=== PATIENT | male | born 1995 | race Caucasian/White ===

== ENCOUNTER 2016-09-12 20:58 | Emergency (ER) | payer OTHER ==
[~2016-09-12] VITALS: Ht 177.8 cm; Wt 89.6 kg
[~2016-09-12 20:58] MED LIST: DXY100 PO
[2016-09-12 21:02] VITALS: TEMP 36.9; Ht 177.8 cm; Wt 89.6 kg
[2016-09-12] MEDS ORDERED: PROPARACAINE HCL 0.5% OP SOLN 15 ML BTL OP STA (21:14)
[2016-09-12] MEDS ORDERED: LISD50CA4 PO (21:41)
[2016-09-12] MEDS ORDERED: TIMOLOL MALEATE 0.25% OP SOLN 5 ML BTL OP STA (23:24)
[2016-09-12] MEDS ORDERED: TRAVOPROST Z 0.004% OPH SOLN 2.5 ML BTL OP SCH (23:30)
--- NOTE | 2016-09-12 23:59 | EMERGENCY ROOM VISIT NOTE ---
History First contact with patient: 21:06 Chief Complaint: EYE ASSESSMENT Stated Complaint: FOREIGN OBJECT IN EYE History of Present Illness The patient is a 21 year old male who presents to the Emergency Room via private vehicle with complaints of "foreign object in eye". The patient states that he had PRK surgery that was performed by Danii Rojo,. The patient states that shortly prior to arrival here today he was at home and felt like something was in his left lower eye like an eyelash. He denies any trauma or pain to the area he just notes discomfort in this region. He denies any vision changes or allergies. Patient's tetanus is up-to-date. Review of Systems A complete 6-point Review of Systems was discussed with the patient, with pertinent positives and negatives listed in the History of Present Illness. All remaining Review of Systems questions can be considered negative unless otherwise specified. Past Medical/Surgical History PRK eye surgery on August 15 2016, wisdom teeth extraction 2011. Family History High blood pressure Social History Smoking Status: Former Smoker Social History: Patient lives in a studio apartment alone. He does not use tobacco products but does admit to a little bit of alcohol use. Current/Historical Medications Scheduled Lisdexamfetamine Dimesylate (Vyvanse), 50 MG PO 5XWK Allergies Coded Allergies: No Known Allergies (Unverified , 09/12/10) Physical Exam Vital Signs Date Time Temp Pulse Resp B/P Pulse Ox O2 Delivery O2 Flow Rate FiO2 09/13/16 00:18 69 18 154/97 100 09/12/16 22:48 83 18 154/82 99 Room Air 09/12/16 21:02 36.9 98 20 153/91 95 Room Air Right Eye Acuity: 20/40 Left Eye Acuity: 20/40 Physical Exam VITAL SIGNS - Vital signs and nursing notes were reviewed. Patient is afebrile , he is hypertensive at 153/91, he is non-tachycardic and is saturating well on room air 95%. GENERAL -21-year-old male appearing his stated age. Communicates well with provider and answers questions appropriately. HEAD - Normocephalic, Atraumatic. No Madrigal's Sign or Raccoon's Eyes. EYES - PERRL with EOMI bilaterally. Sclera without noticeable foreign body or excoriations. No injection noted in the left eye. Bilaterally Without subconjunctival hemorrhage. Palpebral conjunctiva pink and moist with no injection or discharge noted. Brief fundoscopic exam demonstrates no AV-nicking , cotton wool spots, or flame hemorrhages. Slit lamp examination performed as further described. EARS - No deformities of external structures noted on gross examination bilaterally. NOSE - Midline and without cyanosis. Without discharge. MOUTH/OROPHARYNX - Without perioral cyanosis. Slit Lamp Examination was performed of the left eye(s). Alcaine drops were applied to the affected eye(s) for proper anesthetization. The affected eye(s) were stained with Fluorescein stain to precipitate adequate visualization of any conjunctival/scleral excoriations or ulcers. The patient's face was comfortably rested on the chin guard of the slit lamp apparatus. The lights were dimmed and the affected eye(s) were thoroughly examined under microscopy using the blue light. No uptake was present within the left eye. Additionally, the eye(s) were examined under microscopy using the regular light. Close examination revealed an unremarkable eye. Patient tolerated the procedure well and no complications were met. 10:14 PM: An Automated Tonometer was utilized to obtain bilateral orbital pressures. The pressures in the LEFT eye were found to be 48, 42,43 and 43 with an average of 44. The pressures in the RIGHT eye were found to be 42, 39, 40 and 42 with an average of 40.8. Patient tolerated the procedure well and no complications were met. 11:51 PM An Automated Tonometer was utilized to obtain bilateral orbital pressures. The pressures in the LEFT eye were found to be 53, 45,43 and 46 with an average of 46.8. The pressures in the RIGHT eye were found to be 49, 43, 49 and 42 with an average of 45.8. Patient tolerated the procedure well and no complications were met. Medical Decision & Procedures Medications Administered Medications (Trade) Dose Ordered Sig/Jade Route Start Time Stop Time Status Last Admin Dose Admin Proparacaine HCl (Alcaine 0.5% Oph Soln) 2 drops NOW STAT OP 09/12/16 21:14 09/12/16 21:15 DC 09/12/16 21:25 2 DROPS Timolol Maleate (Timoptic 0.25% Oph Soln) 1 drops NOW STAT OP 09/12/16 23:24 09/12/16 23:26 DC 09/12/16 23:36 75 DROPS Travoprost (Travatan Z) 1 drops NOW OP 09/12/16 23:30 09/13/16 01:05 DC 09/12/16 23:48 1 DROPS Medical Decision Patient was seen and evaluated as above. After obtaining a thorough history and physical examination a detailed slit-lamp exam and pressure readings of the eyes were obtained. The father was present for this examination. I tested the pressures first and was concerned due to the elevation. Please refer to physical exam for specific pressures. Due to this finding there was also noted family history of glaucoma in father and mother of the patient. I did stain the eye and did not visualize any foreign body, abrasion or ulceration. My concern after this was due to the patient's pressure readings without a diagnosis of glaucoma. These appear to be new findings. I was also concerned because he had surgery performed about one month ago and was PRK. I then spoke with the on-call doctor for the eye group who performed the surgery. I spoke with Dr. Gupta. This culture place at approximately 10:50 PM. He recommended that I lower the patient's eye pressures into the mid to upper 20s for this evening by using Iopidine and Combigan. These were to be one drop in each eye than wait 20 minutes and repeat pressure checks. He was then to be sent home on Combigan. He was recommended the patient call the office first thing in the morning for reevaluation. I spoke with the patient and the patient's father about this and they were both concerned and requested that I speak with the on- call repairer auto clocks for second opinion which I felt was reasonable given the situation. I then spoke with Dr. Bui at approximately 11:15 PM and I discussed the case. I then discussed with the pharmacy the different eyedrops we had and then called him back so that we could make a decision based upon what eyedrops we had here. It was decided to provide the patient with Timolol eyedrops 1 in each eye and then used Travatan 1 drop in each eye 5 minutes later. These were then placed in the patient's eyes as per recommendation and I repeated the pressures 10:15 minutes later. The concern was that upon pressure recheck there was an elevation. I then called Dr. Bui back at 12: 11 AM. He respectfully took call and indicated that he would be happy to see the patient at his office immediately for further evaluation and management. I felt this was reasonable and instructed the patient and father upon this. They seemed happy with this plan and then were to drive immediately there. I believe this is appropriate and will better serve the patient. Please refer to documentation done by this physician regarding patient management. He was instructed upon management, was educated upon worrisome symptoms in which to return and then the patient was discharged from our facility. In the evaluation and treatment of this patient, the following differential diagnoses were considered: Corneal Abrasion, glaucoma, Conjunctivitis, Eye Contusion, Globe Injury, Orbital Floor Injury (Blowout Fracture), Corneal Ulcer , Keratitis, Herpes Zoster Opthalmic, Blepharitis, Orbital Cellulitis, Iritis, Scleritis/Episcleritis, Uveitis, Temporal Arteritis, Subconjunctival Hemorrhage. Impression Primary Impression: Glaucoma (increased eye pressure) Additional Impression: Irritation of left eye Departure Information Dispostion Home / Self-Care Condition GOOD Referrals Claudio Mayes M.D. (PCP) Riaz Bui M.D. Turco, Domenic A., D.O. Patient Instructions My [facility] Additional Instructions You have been treated in the Emergency Department today for your left eye irritation and were found to have elevated eye pressures in both eyes. Your right eye pressure average was 40.8. Your left eye pressure average was 44.0. These were average based upon four measurements taken from each eye. The second reading after the medication revealed a right eye pressure of 45.8 and left eye of 46.8. Please go directly to Dr. Bui's office at [facility]. He will see you right now. For pain control, you can use the following [id number] medicines (if >12 yo): - Regular strength (325mg/tab) Tylenol (acetaminophen) 2 tabs every 4-6 hours as needed. Do not exceed 12 tablets in a 24 hour period. Avoid taking more than 4 grams (4000 mg) of Tylenol per day. This includes any other sources of acetaminophen you may take on a regular basis. - Regular strength (200 mg/tab) Advil (ibuprofen) 1-2 tabs every 4-6 hours as needed. Do not exceed a dose of 3200 mg per day. You should relax in a quiet, dark place for the rest of the day. You should wear sunglasses while outside for the next few days until your eyes are not as sensitive to the light. Please call your regular spray machine operator to schedule follow-up as soon as possible. It is recommended that he call their office first thing tomorrow morning. Please call the repairer auto clocks office listed to schedule follow-up first thing tomorrow morning. Dr. Bui is to call tomorrow morning at 8 AM to alert them that you may be calling. If he would experience any vision changes or worsening eye pain it is recommended you return immediately. Return to the Emergency Department if your current symptoms worsen despite treatment course outlined above, or if you develop any of the following symptoms : intractable pain, visual disturbances, loss of vision, increased redness, swelling, drainage, or if you develop a fever. Please return to the emergency department with any new/concerning symptoms. Problem Qualifiers Primary Impression: Glaucoma (increased eye pressure) Glaucoma type: other Laterality: bilateral Qualified Codes: H40.89 - Other specified glaucoma
[2016-09-13 00:18] VITALS: BP 154/97; PULSE 69; O2SAT 100
== END 2016-09-13 00:19 | disposition home or self-care (01) ==
LOC: C.EDB 20:59 → C.EDD 09-13 00:19
DX: H40.89 Other specified glaucoma (principal); H57.9 Unspecified disorder of eye and adnexa; Z87.891 Personal history of nicotine dependence; Z98.818 Other dental procedure status; Z98.890 Other specified postprocedural states; Z83.511 Family history of glaucoma

== ENCOUNTER → 2017-03-14 | Outpatient (CLI) | payer OTHER ==
[~2017-03-14] MED LIST changes: -DXY100 PO; +LISD50CA4 PO
--- NOTE | 2017-03-14 18:50 | DIAGNOSTIC IMAGING REPORT ---
ADDENDUM 1. Findings should state potential incomplete nondisplaced cortical fracture distal navicular 2. IMPRESSION: 1. Nondisplaced cortical fracture lateral triquetral. 2. Incomplete nondisplaced cortical fracture distal navicular. 3. Anatomic alignment Electronically signed by: Roosevelt Espinal M.D. 03/14/2017 7:11 PM Dictated Date/Time: 03/14/2017 7:08 PM ORIGINAL REPORT LEFT UPPER EXTREMITY WITHOUT CT DOSE: 200.92 mGy.cm HISTORY: Fracture CLOSED FRACTURE, L WRIST TECHNIQUE: Multiaxial CT images of the left wrist were performed and reformatted in the sagittal and coronal plane without the use of contrast. COMPARISON: None. FINDINGS: Nondisplaced cortical fracture lateral margin of the triquetral bone no evidence for displacement. All remaining osseous structures are unremarkable. Potential incomplete nondisplaced cortical fracture distal ventricular. Moderate soft tissue edema. IMPRESSION: 1. Nondisplaced cortical fracture lateral right lateral bone. 2. Incomplete nondisplaced cortical fracture distal navicular 3. Alignment is anatomic throughout The above report was generated using voice recognition software. It may contain grammatical, syntax or spelling errors. Electronically signed by: Roosevelt Espinal M.D. 03/14/2017 6:49 PM Dictated Date/Time: 03/14/2017 6:44 PM
== END | disposition home or self-care (01) ==
LOC: C.CTS 18:29
PROVIDERS: ATTEND Orthopaedic Surgery Sports Medicine
DX: S52.592A Other fractures of lower end of left radius, initial encounter for closed fracture (principal); X58.XXXA Exposure to other specified factors, initial encounter

== ENCOUNTER → 2017-09-19 | Outpatient (CLI) | payer OTHER | END | disposition home or self-care (01) | LOC: C.LAB 10:55 | PROVIDERS: ATTEND Urology | DX: Z00.00 Encounter for general adult medical examination without abnormal findings (principal) ==